=== PATIENT | female | born 1980 | race Caucasian/White ===

== ENCOUNTER → 2018-02-06 | Outpatient (CLI) | payer BC | LOC: LAB 09:50 | PROVIDERS: ATTEND Nurse Practitioner Family | DX: R33.9 Retention of urine, unspecified (principal) | CPT/HCPCS: 81001 ==

== ENCOUNTER → 2018-02-20 | Outpatient (CLI) | payer BC ==
--- NOTE | 2018-02-20 15:41 | RADIOLOGY IMAGING REPORT ---
FACILITY: [facility] - [place] PATIENT NAME: Marissa Mcgrath : 1980 MR: [id number] V: [id number] EXAM DATE: ORDERING PHYSICIAN: BEE MCKEON TECHNOLOGIST: Location: [facility] - [place] Patient: Marissa Mcgrath : 1980 Visit/Account:[id number] Date of Sevice: 02/20/2018 US SINGLE ORGAN HISTORY: bladder - pre and post void residual COMPARISON: None FINDINGS: Bladder: The urinary bladder prevoid volume was 844 mL. The post void residual is 18 mL. Bilateral ureteral jets are present. Enlarged uterus is producing extrinsic mass effect on the bladder IMPRESSION: Enlarged uterus is producing extrinsic mass effect on the bladder Bladder prevoid volume 844 mL. Post void residual 18 mL. Report Dictated By: Judy Hermosillo MD at 02/20/2018 3:12 PM Report E-Signed By: Judy Hermosillo MD at 02/20/2018 3:37 PM WSN:[email or web address]
--- NOTE | 2018-02-20 15:51 | RADIOLOGY IMAGING REPORT ---
FACILITY: [facility] PATIENT NAME: Marissa Mcgrath : 1980 MR: [id number] V: [id number] EXAM DATE: ORDERING PHYSICIAN: BEE MCKEON TECHNOLOGIST: Location: [facility] Patient: Marissa Mcgrath : 1980 Visit/Account:[id number] Date of Sevice: 02/20/2018 PELVIC HISTORY: urinary retention , uterus enlarged on exam TECHNIQUE: Transabdominal ultrasound pelvis. COMPARISON: None. FINDINGS: Uterus: ; 10.6 cm length x 1.2 cm AP x 1.6 cm transverse. Myometrium: There is a large hypoechoic heterogeneous mass centrally within the uterus measuring 9.3 x 8.5 x 7.9 cm. There is a mild amount of internal vascularity. Endometrium: Endometrium difficult to identify due to the large central uterine mass; Cervix: Not ideally seen although the visualized portion appears grossly unremarkable. Ovaries: Right - 4.2 x 3 x 3.9 cm Left - 3 x 2.6 x 1.7 cm Blood flow is documented in each ovary by duplex Doppler ultrasound. Adnexa: Grossly unremarkable. Free pelvic fluid: None. Urinary bladder prevoid volume 844 mL and postvoid residual 18 mL. IMPRESSION: Large heterogeneous mildly hypervascular mass centrally within the uterus measuring 9.3 x 8.5 x 7.9 c m. This may represent an enlarged fibroid although other solid mass is not excluded Endometrium not well seen due to the enlarged central uterine mass Bladder prevoid volume 844 mL and postvoid residual 18 mL Report Dictated By: Judy Hermosillo MD at 02/20/2018 3:42 PM Report E-Signed By: Judy Hermosillo MD at 02/20/2018 3:46 PM WSN:[email or web address]
== END ==
LOC: US 01:29
PROVIDERS: ATTEND Nurse Practitioner Family
DX: N85.2 Hypertrophy of uterus (principal); N85.8 Other specified noninflammatory disorders of uterus
CPT/HCPCS: 76705; 76856

== ENCOUNTER → 2018-03-28 | Outpatient (CLI) | payer BC ==
[~2018-03-28] MED LIST: GADOBENATE 529MG/1ML 15ML VIAL IVP ONE; NS 0.9% 25 ML BAG 0 ML ONE; NS 0.9% 25 ML BAG 50 ML ONE
--- NOTE | 2018-03-28 15:06 | RADIOLOGY IMAGING REPORT ---
[place] [facility] [place] Marissa Mcgrath : 1980 MR: [id number] V: [id number] EXAM DATE: ORDERING PHYSICIAN: [facility] TECHNOLOGIST: Location[place] [facility] [place] Patient: Marissa Mcgrath : 1980 Visit/Account:[id number] Date of Sevice: 03/28/2018 PELVIS W W/O CONTRAST HISTORY: Uterine mass COMPARISON STUDIES: Pelvic ultrasound 02/20/2018 TECHNIQUE: Multi-planar, multi-sequence MRI was performed without and with IV gadolinium. Contrast: 15 mL of MultiHance FINDINGS: Uterus: Markedly enlarged measuring 11.8 x 10.7 x 10.1 cm. Large enhancing 10.8 x 8.6 x 8.9 cm uteri ne mass displacing the endometrium to the right consistent with a fibroid Ovaries / adnexa: Both ovaries are normal in size with multiple physiologic cysts/follicles. No conc erning ovarian mass. Urinary bladder: Negative Bowel / peritoneum / mesentery: Tiny amount of pelvic free fluid, likely physiologic. Bones: Tarlov cyst noted. Vascular structures: Negative Lymph nodes: Negative Other findings: None significant IMPRESSION: 1. Uterus is markedly enlarged measuring 11.8 x 10.7 x 10.1 cm. There is a dominant enhancing 10.8 x 8.6 x 8.9 cm uterine mass consistent with a fibroid displacing the endometrium to the right. 2. Normal ovaries. 3. Tiny amount of pelvic free fluid. Report Dictated By: Justin Hernandez MD at 03/28/2018 2:55 PM Report E-Signed By: Justin Hernandez MD at 03/28/2018 3:02 PM WSN:[email or web address]
== END ==
LOC: MRI 01:52
DX: D25.9 Leiomyoma of uterus, unspecified (principal)
CPT/HCPCS: 72197; A9577